=== PATIENT | female | born 1965 | race Caucasian/White ===

== ENCOUNTER 2019-04-13 12:47 | Emergency (ER) | payer OTHER ==
[~2019-04-13] VITALS: Ht 175.3 cm; Wt 100.2 kg
[~2019-04-13 12:47] MED LIST: AZULFIDINE500 MG PO; BUPROPION XL300 MG PO; FOLIC ACID1 MG PO; LEFLUNOMIDE10 MG PO; LISINOPRIL10 MG PO; ORENCIA 25250 MG/10 IV; VICODIN 5-3001 EACH PO
[2019-04-13] MEDS ORDERED: METHOTREXATE2.5 MG PO (13:09)
[2019-04-13] MEDS ORDERED: RITUXAN10 MG/1 ML (13:10)
== END 2019-04-13 14:16 | disposition home or self-care (01) ==
LOC: ED 12:47
DX: S80.212A Abrasion, left knee, initial encounter (principal); T14.8XXA Other injury of unspecified body region, initial encounter; W10.9XXA Fall (on) (from) unspecified stairs and steps, initial encounter; I10 Essential (primary) hypertension; Z88.0 Allergy status to penicillin; Z79.899 Other long term (current) drug therapy
CPT/HCPCS: 73560; 99283-25; A9270

== ENCOUNTER 2020-11-02 06:25 | Day surgery (SDC) | payer OTHER ==
[~2020-11-02] VITALS: Ht 175.3 cm; Wt 98.0 kg
[~2020-11-02 06:25] MED LIST changes: +FISH OIL 1,001000 MG PO; +METHOTREXATE2.5 MG PO; +RITUXAN10 MG/1 ML; +TURMERIC1 GM MISC; +VITAMIN D21250 MCG PO
[2020-11-02] MEDS ORDERED: HYDROCODON-ACE1 EA10 PO (08:22)
--- NOTE | 2020-11-02 08:28 | NUR ---
11/02/20 0828 Felicita Reyes [id number] PATIENT ARRIVES TO PACU UNRESPONSIVE TO PAIN. ORAL AIRWAY IN PLACE. RESP EVEN AND UNLABORED, MASK AT 6 LITERS.
--- NOTE | 2020-11-02 09:04 | NUR ---
PATIENT BACK TO DAYSURGERY, BEDSIDE REPORT FROM GARY TAVAREZ. PATIENT AWAKE RATING PAIN 5/10 ON PAIN SCALE. DRESSING TO RIGHT KNEE C/D/I. STRONG PEDAL PULSE. ICE AND ELVATION IN PLACE. VSS. PATIENT TOLERATING SNACKS AND DRINKS. ADMINISTERED PAIN MEDICATION PER MAY. CALL LIGHT IN [place], PROVIDED BEAR HUGGER FOR WARMING AND COMFORT.
--- NOTE | 2020-11-02 10:08 | NUR ---
PATIENT RESTING COMFORTABLY IN BED. PAIN 4/10. DENIES NAUSEA. DRESSING CLEAN , DRY AND INTACT. DRINKING WATER. CALL LIGHT WITHIN REACH.
--- NOTE | 2020-11-02 11:28 | NUR ---
PATIENT HAVING INCREASED PAIN AFTER ADMINISTRATION OF PAIN MEDICATION. REQUESTED GARY OFFICE COPY SELECTOR NURSE TO ASSESS SURGICAL SITE THEN HAD OR NURSE JUANA INTO ROOM, SWELLING APPEARED FIRM AND PATIENT UNABLE TO LIFT LEG UP. CONTINUED TO ATTEMPT TO AMBULATE TO BATHROOM, PATIENT ATTEMPTED ONE STEP AND GRIMACED WITH REPORTED "SHARP PAIN" PATIENT THEN SAT BACK DOWN. CALL TO DR. CAMP WHO ORERED AN ADDITIONAL 30 MG IV TORADOL. AFTER GETTING OFF THE PHONE, WAS CALLED INTO PATIENT ROOM AND ALERTED DRESSING SATURATED WITH BLOOD. APPLIED ABD AND COBAN AND THEN CONTACTED DR. CAMP AGAIN. PATIENT STATED " THE SHARP PAIN IS GONE, AND NOW I CAN LIFT MY LEG". DR. CAMP VERBALIZED TO APPLY NEW ABD OVER SURGICAL ABD, AND THEN APPLY NEW ABD WITH NEW GIL WRAP. VERBALIZED TO PATIENT AND THEN APPLIED ICE BAG AND PILLOW FOR ELAVATION.
--- NOTE | 2020-11-02 12:15 | NUR ---
PATIENT UP TO BATHROOM, TOLERATED ACTIVITY WELL. APPEARS STEADY ON FEET. RATES PAIN 3/10 ON PAIN SCALE, REPORTS TOLERABLE. PATIENT VOIDED WELL. BACK TO ROOM, DRESSING APPEARED C/D/I. PATIENT NOW DRESSING SELF. HAS MET CRITERIA TO GO HOME, PATIENT VERBALIZED FEELS COMFORTABLE. PROVIDED PATIETN WITH EXTRA ABD, AND ON- CALL CELL PHONE NUMBER IF HAS ANY PROBLEMS OVER THE WEEKEND. PATIENT RIDE CALLED TO PICK PATIENT UP.
--- NOTE | 2020-11-02 12:53 | NUR ---
PROVIDED PATIENT WITH DISCHARGE INSTRUCTIONS. PATIENT VERBALIZED UNDERSTANDING AND ALL QUESTIONS ANSWERED. PATIENTS NEW DRESSINGS ARE CLEAN, DRY, AND INTACT. PATIENTS PAIN IS WELL CONTROLLED. PROVIDED PATIENT WITH WHEELCHAIR RIDE TO FRONT OF HOSPITAL WHERE HER FRIEND WAS THERE TO PICK HER UP.
--- NOTE | 2020-11-05 07:13 | OR ---
[facility] [address] [place], [place] [address] Signed DATE OF OPERATION: 11/02/2020 SURGEON: Jorge Byrne MD PREOPERATIVE DIAGNOSIS: Lateral meniscus tear, right knee. POSTOPERATIVE DIAGNOSIS: Lateral meniscus tear, right knee. PROCEDURE PERFORMED: Right knee arthroscopy with partial lateral meniscectomy. EARTH BORING MACHINE OPERATOR: None. ANESTHESIA: General. BLOOD LOSS: Minimal. BRIEF HISTORY: Francy is a 54-year-old female with pain and instability in her knee. Risks and benefits of operative treatment were discussed with her, operative debridement after MRI showed a large lateral meniscus tear. DESCRIPTION OF PROCEDURE: Once consent was obtained, she was taken to the operating room. After adequate anesthesia, she was placed on operating table. All downside pressure points were well padded. The right leg was placed in well-padded proximal thigh leg cash that was well padded. The left leg was flexed, abducted, and externally rotated on a well-padded leg cash. The portal sites were pre-injected using 0.25% Marcaine with epinephrine under an alcohol prep. The leg was then prepped and draped in a standard sterile fashion. The standard inferolateral and superolateral portals were made and the scope was introduced in the knee. ARTHROSCOPIC FINDINGS: Minimal to moderate synovitis was noted throughout the knee. 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 The trochlea showed grade 2 Electronically Signed By: JORGE BYRNE MD 11/05/20 0713 PATIENT NAME: FRANCY SANTOS OPERATIVE REPORT DATE OF : 63 REPORT #: [id number] PHYSICIAN: JORGE BYRNE MD PCP: MAKENZIE YAN PA-C REPORT IS CONFIDENTIAL AND NOT TO BE RELEASED WITHOUT AUTHORIZATION [address] [address] Signed diffuse chondromalacia. Medial and lateral gutters were clear, although there were some small osteophytes. ACL and PCL were intact. Medial compartment was intact. Lateral compartment showed grade 2 grade 3 chondromalacia posteriorly. There was a complex tear extending from the midlateral body all the way around posteriorly. The diagnostic arthroscopy was undertaken and the standard inferomedial portal was made after localization using a spinal needle. The straight and curved biters were then used to trim the meniscus tear back to a stable rim. This was then smoothed using a shaver and all debris was evacuated. The meniscus was feathered out anteriorly. The scope was withdrawn. Portals were closed with 3-0 nylon and dressed with Adaptic, ABD, and Ed wrap. The knee was injected with 60 mg Toradol at the end of the case. She tolerated the procedure well. All sponge, needle, and instrument counts were correct. Jorge Byrne MD BA/KAYLYNN /[id number] Copies: ~ Electronically Signed By: JORGE BYRNE MD 11/05/20 0713 PATIENT NAME: FRANCY SANTOS OPERATIVE REPORT DATE OF : 63 REPORT #: [id number] PHYSICIAN: JORGE BYRNE MD PCP: MAKENZIE YAN PA-C REPORT IS CONFIDENTIAL AND NOT TO BE RELEASED WITHOUT AUTHORIZATION
--- NOTE | 2020-11-11 12:53 | EKG ---
[facility] [address] [facility] [place] [address] Signed Normal sinus rhythm Normal ECG No previous ECGs available Confirmed by ANTONIA LUCERO MD ([id number]) on 11/11/2020 12:53:19 PM Electronically Signed By: ANTONIA LUCERO MD 11/11/20 1253 PATIENT NAME: ALYSA SANTOS Electrocardiogram DATE OF : 63 PHYSICIAN: ANTONIA LUCERO MD REPORT #: [id number] REPORT IS CONFIDENTIAL AND NOT TO BE RELEASED WITHOUT AUTHORIZATION
== END 2020-11-02 12:48 | disposition home or self-care (01) ==
LOC: DS 06:25 → OPS 06:25 → DS 08:15 → OPS 08:15
PROVIDERS: ATTEND Specialist
PROC: 0SBC4ZZ Excision of Right Knee Joint, Percutaneous Endoscopic Approach (ICD-10-PCS; principal; 2020-11-02 07:45)
DX: S83.271A Complex tear of lateral meniscus, current injury, right knee, initial encounter (principal); K21.9 Gastro-esophageal reflux disease without esophagitis; M06.9 Rheumatoid arthritis, unspecified; W18.30XA Fall on same level, unspecified, initial encounter; Y92.148 Other place in prison as the place of occurrence of the external cause; Z88.0 Allergy status to penicillin
CPT/HCPCS: 01400; 93005; 93010; J0690; J1100; J1885; J2001; J2250; J2405; J2704; J7121